=== PATIENT | female | born 1960 | race African-American/Black ===

== ENCOUNTER → 2017-05-24 | Day surgery (SDC) | payer OTHER ==
[~2017-05-24] MED LIST: AMLO5TAB22 PO; FURO20TA PO; HYDR-2768 PO; K-TA10TA5 PO; LACTATED RINGER'S 1000 ML INJ 1,000 ML ONE; OMEGCAP21 PO; OMEP20TA39 PO; PROPOFOL 500 MG/50 ML BTL IV ONE; VITA100018 OR; VITA10002 PO
== END | disposition home or self-care (01) ==
LOC: ESDC 12:12
PROVIDERS: ATTEND Internal Medicine Gastroenterology
DX: K92.1 Melena (principal); K64.4 Residual hemorrhoidal skin tags; K64.0 First degree hemorrhoids
CPT/HCPCS: 00810; 00902; 45378; 46930; J7120

== ENCOUNTER 2017-07-24 15:37 | Observation (INO) | payer OTHER ==
[~2017-07-24] VITALS: Ht 172.7 cm; Wt 145.5 kg
[~2017-07-24 15:37] MED LIST changes: -LACTATED RINGER'S 1000 ML INJ 1,000 ML ONE; -PROPOFOL 500 MG/50 ML BTL IV ONE
[2017-07-24] MEDS ORDERED: ASPIRIN 81 MG CHEW TAB PO ONE (16:00)
[2017-07-24] MEDS ORDERED: SODIUM CHLORIDE 0.9% FLUSH 10 ML FLUSH IVF PRN (16:00)
[2017-07-24] MEDS: NITROGLYCERIN 0.4 MG SL 25 TABS/BTL SL ONE ×2 (16:00→16:21)
[2017-07-24] MEDS ORDERED: OMEP20TA93 PO (16:02)
[2017-07-24] MEDS ORDERED: LISI-515 PO (16:02)
[2017-07-24] MEDS ORDERED: POTA10CA PO (16:02)
[2017-07-24] MEDS ORDERED: HYDR25TA5 PO (16:02)
[2017-07-24] MEDS ORDERED: FURO1TAB62 PO (16:02)
[2017-07-24 16:03] VITALS: BP 153/96; PULSE 70; RESP 18; TEMP 97.6; O2SAT 99
[2017-07-24 16:22] VITALS: BP 160/90; PULSE 69; RESP 18; O2SAT 99
[2017-07-24 16:25] LABS: AUTOMATED NEUTROPHIL # 3.9 TH/MM3 (1.8-7.7); BASOPHIL # 0.2 TH/MM3 (0-0.2); BASOPHIL % 2.1 % (0.0-2.0); EOSINOPHIL # 0.3 TH/MM3 (0-0.4); EOSINOPHIL % 3.8 % (0.0-4.0); HEMOGLOBIN 12.4 GM/DL (11.6-15.3); LYMPH % 35.8 % (9.0-44.0); LYMPHOCYTE # 2.7 TH/MM3 (1.0-4.8); MEAN CELL VOLUME 76.6 FL (80.0-100.0); MEAN CORPUSCULAR HEMOGLOBIN 23.8 PG (27.0-34.0); MEAN CORPUSCULAR HGB CONC 31.1 % (32.0-36.0); MEAN PLATELET VOLUME 7.8 FL (7.0-11.0); MONOCYTE # 0.5 TH/MM3 (0-0.9); NEUT % 51.3 % (16.0-70.0); PLATELET COUNT 334 TH/MM3 (150-450); RED BLOOD COUNT 5.22 MIL/MM3 (4.00-5.30); RED CELL DISTRIBUTION WIDTH 14.7 % (11.6-17.2); WHITE BLOOD COUNT 7.6 TH/MM3 (4.0-11.0)
[2017-07-24 16:34] LABS: CHLORIDE 103 MEQ/L (98-107); SODIUM (NA) 138 MEQ/L (136-145)
[2017-07-24 16:36] LABS: CALCIUM 8.8 MG/DL (8.5-10.1)
[2017-07-24 16:37] LABS: BICARBONATE 28.1 MEQ/L (21.0-32.0); BLOOD UREA NITROGEN 16 MG/DL (7-18); GLUCOSE,RANDOM 90 MG/DL (74-106); MAGNESIUM 2.1 MG/DL (1.5-2.5)
[2017-07-24 16:40] LABS: CREATININE 0.93 MG/DL (0.50-1.00); GLOMERULAR FILTRATION RATE 75 ML/MIN (>89)
[2017-07-24 16:44] LABS: INTERNATIONAL NORMALIZED RATIO 1.1 RATIO; PROTHROMBIN TIME - PATIENT 10.9 SEC (9.8-11.6)
[2017-07-24 16:45] LABS: TROPONIN I LESS THAN 0.02 NG/ML (0.02-0.05)
--- NOTE | 2017-07-24 16:50 | PD ---
HPI Chief Complaint: Chest Pain Time Seen by Provider: 15:52 Travel History International Travel<30 days: No Contact w/Intl Traveler<30days: No Traveled to known affect area: No History of Present Illness HPI 56-year-old female came to the emergency room with history of chest pressure since this morning. The pressure is in the center of her chest and not radiating. Patient describes the discomfort as an elephant sitting on her chest. No history of shortness of breath or dizziness. Patient has some headache as well. Patient has history of hypertension and takes medications for that. She is not a smoker. Family history of coronary artery disease. Vital signs were relatively stable when I walked in the room and talked to the patient. Currently her pressure is 4 out of 10 as per the patient. PFSH Past Medical History Narrative Medical List of her past medical, surgical, social and family history is reviewed from the nursing note. Hx Anticoagulant Therapy: Yes Heart Rhythm Problems: No Cardiac Catheterization: No Cardiovascular Problems: Yes High Cholesterol: Yes Congestive Heart Failure: No Diabetes: No Diminished Hearing: No Gastrointestinal Disorders: Yes (GERD) GERD: Yes Genitourinary: No Hypertension: Yes Musculoskeletal: No Neurologic: No Psychiatric: No Respiratory: Yes Immunizations Current: Yes Influenza Vaccination: No ?: Not Menopausal: Yes : 3 Para: 3 Miscarriage: 0 : 0 Tubal Ligation: Yes Past Surgical History Abdominal Surgery: Yes (CHOLECESECTOMY) AICD: No Body Medical Devices: PLATE FOR CERVICAL FUSION Cholecystectomy: Yes Coronary Artery Bypass Graft: No Endocrine Surgery: No Eye Surgery: No Gynecologic Surgery: Yes (HYSTERECTOMY 1990) Hysterectomy: Yes Joint Replacement: No Neurologic Surgery: Yes (CERVICAL FUSION) Oral Surgery: No Pacemaker: No Other Surgery: Yes Family History Family Myocardial Infarction: Yes (FATHER- PASSED AT 63) Social History Alcohol Use: No Tobacco Use: No Substance Use: No Allergies-Medications (Allergen,Severity, Reaction): Coded Allergies: Sulfa (Sulfonamide Antibiotics) (Unverified Allergy, Unknown, 07/24/17) Comments List of her allergies reviewed from the nursing note. Reported Meds & Prescriptions Reported Meds & Active Scripts Active Reported Omeprazole 20 Mg Tab 20 Mg PO DAILY Lasix (Furosemide) 20 Mg Tab 20 Mg PO DAILY Hydrochlorothiazide 25 Mg Tab 25 Mg PO DAILY Potassium Chloride ER (Potassium Chloride) 10 Meq Cap 10 Meq PO DAILY Lisinopril 20 Mg Tab 20 Mg PO DAILY Narrative Medication List of her home medications reviewed from the nursing note. Review of Systems Except as stated in HPI: all other systems reviewed are Neg Cardiovascular: Positive: Chest Pain or Discomfort Physical Exam Narrative GENERAL: Awake, alert, morbidly obese, mild distress SKIN: Focused skin assessment warm/dry. HEAD: Atraumatic. Normocephalic. EYES: Pupils equal and round. No scleral icterus. No injection or drainage. ENT: No nasal bleeding or discharge. Mucous membranes pink and moist. NECK: Trachea midline. No JVD. CARDIOVASCULAR: Regular rate and rhythm. No murmur appreciated. RESPIRATORY: No accessory muscle use. Clear to auscultation. Breath sounds equal bilaterally. GASTROINTESTINAL: Abdomen soft, non-tender, nondistended. Hepatic and splenic margins not palpable. MUSCULOSKELETAL: No obvious deformities. No clubbing. No cyanosis. No edema. NEUROLOGICAL: Awake and alert. No obvious cranial nerve deficits. Motor grossly within normal limits. Normal speech. PSYCHIATRIC: Appropriate mood and affect; insight and judgment normal. Data Data Last Documented VS Orders Orders Electrocardiogram (07/24/17 15:58) Basic Metabolic Panel (Bmp) (07/24/17 15:58) Ckmb (Isoenzyme) Profile (07/24/17 15:58) Complete Blood Count With Diff (07/24/17 15:58) Magnesium (Mg) (07/24/17 15:58) Prothrombin Time / Inr (Pt) (07/24/17 15:58) Act Partial Throm Time (Ptt) (07/24/17 15:58) Troponin I (07/24/17 15:58) Chest, Single Ap (07/24/17 15:58) Ecg Monitoring (07/24/17 15:58) Bilateral Bp Monitoring (07/24/17 15:58) Iv Access Insert/Monitor (07/24/17 15:58) Oximetry (07/24/17 15:58) Oxygen Administration (07/24/17 15:58) Aspirin Chew (Aspirin Chew) (07/24/17 16:00) Sodium Chloride 0.9% Flush (Ns Flush) (07/24/17 16:00) Nitroglycerin Sl (Nitrostat Sl) (07/24/17 16:00) CKMB (07/24/17 16:10) CKMB% (07/24/17 16:10) Admit Order (Ed Use Only) (07/24/17 17:01) Place In Observation (07/24/17 ) Vital Signs (Adult) Q4H (07/24/17 16:59) Activity Oob With Assistance (07/24/17 16:59) Diet Heart Healthy (07/24/17 Dinner) Sodium Chloride 0.9% Flush (Ns Flush) (07/24/17 17:00) Sodium Chloride 0.9% Flush (Ns Flush) (07/24/17 21:00) Acetaminophen (Tylenol) (07/24/17 17:00) Ondansetron Inj (Zofran Inj) (07/24/17 17:00) Temazepam (Restoril) (07/24/17 17:00) Basic Metabolic Panel (Bmp) (07/25/17 06:00) Complete Blood Count With Diff (07/25/17 06:00) Resp Oxygen Barry C Titrat 1-4 L (07/24/17 ) Pt Request For Service (07/24/17 16:59) Scd Bilateral/Knee High YAHAIRA.BID (07/24/17 16:59) Reid Bilateral/Knee High YAHAIRA.QSHIFT (07/24/17 16:59) Naloxone Inj (Narcan Inj) (07/24/17 17:00) Docusate Sodium-Senna (Dori-Colace) (07/24/17 21:00) Magnesium Hydroxide Liq (Milk Of Magnesi (07/24/17 17:00) Sennosides (Senokot) (07/24/17 17:00) Bisacodyl Supp (Dulcolax Supp) (07/24/17 17:00) Lactulose Liq (Lactulose Liq) (07/24/17 17:00) Labs Laboratory Tests Test 07/24/17 16:10 White Blood Count 7.6 TH/MM3 Red Blood Count 5.22 MIL/MM3 Hemoglobin 12.4 GM/DL Hematocrit 40.0 % Mean Corpuscular Volume 76.6 FL Mean Corpuscular Hemoglobin 23.8 PG Mean Corpuscular Hemoglobin Concent 31.1 % Red Cell Distribution Width 14.7 % Platelet Count 334 TH/MM3 Mean Platelet Volume 7.8 FL Neutrophils (%) (Auto) 51.3 % Lymphocytes (%) (Auto) 35.8 % Monocytes (%) (Auto) 7.0 % Eosinophils (%) (Auto) 3.8 % Basophils (%) (Auto) 2.1 % Neutrophils # (Auto) 3.9 TH/MM3 Lymphocytes # (Auto) 2.7 TH/MM3 Monocytes # (Auto) 0.5 TH/MM3 Eosinophils # (Auto) 0.3 TH/MM3 Basophils # (Auto) 0.2 TH/MM3 CBC Comment AUTO DIFF Differential Comment AUTO DIFF CONFIRMED Prothrombin Time 10.9 SEC Prothromb Time International Ratio 1.1 RATIO Activated Partial Thromboplast Time 22.1 SEC Blood Urea Nitrogen 16 MG/DL Creatinine 0.93 MG/DL Random Glucose 90 MG/DL Calcium Level 8.8 MG/DL Magnesium Level 2.1 MG/DL Sodium Level 138 MEQ/L Potassium Level 4.3 MEQ/L Chloride Level 103 MEQ/L Carbon Dioxide Level 28.1 MEQ/L Anion Gap 7 MEQ/L Estimat Glomerular Filtration Rate 75 ML/MIN Total Creatine Kinase 274 U/L Creatine Kinase MB 2.0 NG/ML Creatine Kinase MB % 0.7 % Troponin I LESS THAN 0.02 NG/ML MDM Medical Decision Making Medical Screen Exam Complete: Yes Emergency Medical Condition: Yes Medical Record Reviewed: Yes Interpretation(s) Twelve-lead EKG was reviewed by me. Normal sinus rhythm, axis deviation, first- degree AV block, nonspecific ST-T wave changes. Heart rate of 67 bpm. Differential Diagnosis ACS, non-STEMI Narrative Course 4:53 PM blood test results of back and within acceptable limit. However patient has quite a few risk factors including hypertension, obesity and family history. I discussed with her that she would require admission to be ruled out for ACS by stress test. Patient has agreed to. Awaiting for the hospitalist to call back. Procedures EKG Prior to Arrival: No Diagnosis Primary Impression: Chest pain Qualified Codes: R07.9 - Chest pain, unspecified Admitting Information Admitting Physician Requests: Jennifer Hyman MD Jul 24, 2017 16:50
--- NOTE | 2017-07-24 16:54 | RADRPT ---
EXAM DATE/TIME: 07/24/2017 16:14 [facility] COMPARISON: CHEST SINGLE AP, October 15, 2010, 13:23. INDICATIONS : Chest pain MEDICAL HISTORY : None. SURGICAL HISTORY : None. ENCOUNTER: Initial ACUITY: 1 day PAIN SCORE: 5/10 LOCATION: Bilateral chest FINDINGS: The lungs are clear without infiltrate, nodule, or mass. There is no appreciable pleural effusion fo r technique. Heart and mediastinum are unremarkable. CONCLUSION: No acute cardiopulmonary disease. Heidy Srinivasan MD on July 24, 2017 at 16:51 Board Certified Radiologist. This report was verified electronically.
[2017-07-24] MEDS ORDERED: SENNOSIDES 8.6 MG TAB PO PRN (17:00)
[2017-07-24] MEDS ORDERED: SODIUM CHLORIDE 0.9% FLUSH 10 ML FLUSH IV FLUSH PRN (17:00)
[2017-07-24] MEDS ORDERED: LACTULOSE SYRUP 20 GM/30 ML CUP PO PRN (17:00)
[2017-07-24] MEDS ORDERED: TEMAZEPAM 15 MG CAP PO PRN (17:00)
[2017-07-24] MEDS ORDERED: NALOXONE HCL 0.4 MG/ML AMP IV PUSH PRN (17:00)
[2017-07-24] MEDS ORDERED: ONDANSETRON HCL 4 MG/2 ML VIAL IVP PRN (17:00)
[2017-07-24] MEDS ORDERED: BISACODYL 10 MG SUPP RECTAL PRN (17:00)
[2017-07-24] MEDS ORDERED: ACETAMINOPHEN 325 MG TAB PO PRN (17:00)
[2017-07-24] MEDS ORDERED: MAGNESIUM HYDROXIDE SUSP 30 ML CUP PO PRN (17:00)
[2017-07-24] MEDS ORDERED: NITROGLYCERIN 0.4 MG SL 25 TABS/BTL SL PRN (17:15)
[2017-07-24 17:28] VITALS: O2SAT 97
[2017-07-24 17:29] VITALS: BP 164/94; PULSE 68; RESP 18; O2SAT 97
--- NOTE | 2017-07-24 17:35 | HHI.HP ---
[facility] Service [facility] Primary Care Physician Billy Mueller MD Admission Diagnosis Chest pain, rule out ACS Diagnoses: Chief Complaint: Chest pain Travel History International Travel<30 Days: No Contact w/Intl Traveler <30 Da: No Traveled to Known Affected Are: No History of Present Illness Written by Antonette Xavier, acting as scribe for Dr. Ramirez on 07/24/17 at 17:29. Ms. García is a 56-year-old female patient with a known medical history of HTN, hyperlipidemia, and GERD who presented to the ED with complaints of chest pain. Patient states that for 1 week now she has had pain going down her left sided neck and left arm. Believed to have thought she laid on it wrong but then today while she was lying in bed she felt as thought "something was sitting on her chest". Pain lasted around an hour and subsided upon arrival to the ED when given Aspirin. Denies any associated shortness of breath or nausea. Does admit to associated lightheadedness. Denies ever having any pain like this before in her arm. She also does admit to elevated BP today and this was concerning to the patient. It should be noted that patient presented to the sharepoint consultant's office to obtain a BP last week and it was reportedly elevated with systolic in the 170s. Patient's sharepoint consultant is Dr. Piña. Last hospital admission with chest pain was roughly 1 year ago. Stress test was performed and reportedly negative. At the time of assessment patient denies any current or recurrent chest pain. Does complaint of headache. Review of Systems Constitutional: DENIES: Fever, Chills Eyes: DENIES: Blurred vision, Vision loss Respiratory: DENIES: Cough, Sputum production, Shortness of breath Cardiovascular: COMPLAINS OF: Chest pain, DENIES: Palpitations Gastrointestinal: DENIES: Abdominal pain, Bloody stools, Constipation, Diarrhea , Nausea, Vomiting Musculoskeletal: COMPLAINS OF: Joint pain (left arm) Psychiatric: COMPLAINS OF: Anxiety Except as stated in HPI: all other systems reviewed are Neg Past Family Social History Past Medical History Hypertension Hyperlipidemia GERD Past Surgical History Cholecystectomy Hysterectomy Cervical fusion Tubal ligation Reported Medications Active Reported Omeprazole 20 Mg Tab 20 Mg PO DAILY Lasix (Furosemide) 20 Mg Tab 20 Mg PO DAILY Hydrochlorothiazide 25 Mg Tab 25 Mg PO DAILY Potassium Chloride ER (Potassium Chloride) 10 Meq Cap 10 Meq PO DAILY Lisinopril 20 Mg Tab 20 Mg PO DAILY Allergies: Coded Allergies: Sulfa (Sulfonamide Antibiotics) (Unverified Allergy, Unknown, 07/24/17) Active Ordered Medications Current Medications Medications (Trade) Dose Ordered Sig/Rosmery Route Start Time Stop Time Status Last Admin (NS Flush) 2 ml UNSCH PRN IV FLUSH 07/24/17 17:00 (NS Flush) 2 ml BID IV FLUSH 07/24/17 21:00 (Tylenol) 650 mg Q4H PRN PO 07/24/17 17:00 (Zofran Inj) 4 mg Q6H PRN IVP 07/24/17 17:00 (Restoril) 15 mg HS PRN PO 07/24/17 17:00 (Narcan Inj) 0.4 mg UNSCH PRN IV PUSH 07/24/17 17:00 (Dori-Colace) 1 tab BID PO 07/24/17 21:00 (Milk Of Magnesia Liq) 30 ml Q12H PRN PO 07/24/17 17:00 (Senokot) 17.2 mg Q12H PRN PO 07/24/17 17:00 (Dulcolax Supp) 10 mg DAILY PRN RECTAL 07/24/17 17:00 (Lactulose Liq) 30 ml DAILY PRN PO 07/24/17 17:00 (Lasix) 20 mg DAILY PO 07/25/17 09:00 (Hydrodiuril) 25 mg DAILY PO 07/25/17 09:00 (Prinivil) 20 mg DAILY PO 07/25/17 09:00 (KCl) 10 meq DAILY PO 07/25/17 09:00 Non-Formulary Medication 20 mg DAILY PO 07/25/17 09:00 UNV (Nitrostat Sl) 0.4 mg Q5M PRN SL 07/24/17 17:15 Family History Paternal medical history significant for cardiovascular disease. Mother had cardiovascular disease. Grandmother with pacemake. Social History Denies any tobacco use. Denies any alcohol use. Denies any illicit drug use. Physical Exam Vital Signs Vital Signs Date Time Temp Pulse Resp B/P (MAP) Pulse Ox O2 Delivery O2 Flow Rate FiO2 07/24/17 17:28 97 21 07/24/17 16:22 69 18 160/90 (113) 99 Room Air 07/24/17 16:06 70 07/24/17 16:05 98 Room Air 07/24/17 16:03 97.6 70 18 153/96 (115) 99 Physical Exam GENERAL: This is a well-nourished, well-developed female patient, in no apparent distress. SKIN: No rashes, ecchymoses or lesions. Warm and dry. HEAD: Atraumatic. Normocephalic. EYES: Pupils equal round and reactive. Extraocular motions intact. No scleral icterus. No injection or drainage. ENT: Nose without bleeding, purulent drainage or septal hematoma. Throat without erythema, tonsillar hypertrophy or exudate. Uvula midline. Airway patent. NECK: Trachea midline. No JVD. Supple. CARDIOVASCULAR: Regular rate and rhythm without murmurs, gallops, or rubs. No reproducible chest discomfort. RESPIRATORY: Clear to auscultation. Breath sounds equal bilaterally. No wheezes , rales, or rhonchi. GASTROINTESTINAL: Abdomen soft, non-tender, nondistended. No guarding. MUSCULOSKELETAL: Extremities without clubbing, cyanosis, or edema. No joint tenderness, effusion, or edema noted. NEUROLOGICAL: Awake and alert. Cranial nerves II through XII intact. Motor and sensory grossly within normal limits. Five out of 5 muscle strength in all muscle groups. Normal speech. Laboratory Laboratory Tests Test 07/24/17 16:10 White Blood Count 7.6 Red Blood Count 5.22 Hemoglobin 12.4 Hematocrit 40.0 Mean Corpuscular Volume 76.6 Mean Corpuscular Hemoglobin 23.8 Mean Corpuscular Hemoglobin Concent 31.1 Red Cell Distribution Width 14.7 Platelet Count 334 Mean Platelet Volume 7.8 Neutrophils (%) (Auto) 51.3 Lymphocytes (%) (Auto) 35.8 Monocytes (%) (Auto) 7.0 Eosinophils (%) (Auto) 3.8 Basophils (%) (Auto) 2.1 Neutrophils # (Auto) 3.9 Lymphocytes # (Auto) 2.7 Monocytes # (Auto) 0.5 Eosinophils # (Auto) 0.3 Basophils # (Auto) 0.2 CBC Comment AUTO DIFF Differential Comment AUTO DIFF CONFIRMED Prothrombin Time 10.9 Prothromb Time International Ratio 1.1 Activated Partial Thromboplast Time 22.1 Blood Urea Nitrogen 16 Creatinine 0.93 Random Glucose 90 Calcium Level 8.8 Magnesium Level 2.1 Sodium Level 138 Potassium Level 4.3 Chloride Level 103 Carbon Dioxide Level 28.1 Anion Gap 7 Estimat Glomerular Filtration Rate 75 Total Creatine Kinase 274 Creatine Kinase MB 2.0 Creatine Kinase MB % 0.7 Troponin I LESS THAN 0.02 Result Diagram: 07/24/17 1610 07/24/17 1610 Imaging Last Impressions Chest X-Ray 07/24/17 1558 Signed Impressions: Service Date/Time: Wednesday, July 24, 2017 16:14 - CONCLUSION: No acute cardiopulmonary disease. Heidy Srinivasan MD Septic Shock Reassessment Septic shock perfusion: reassessment completed Caprini VTE Risk Assessment Caprini VTE Risk Assessment: No/Low Risk (score <= 1) Caprini Risk Assessment Model Point Value = 1 Point Value = 2 Point Value = 3 Point Value = 5 Age 41-60 Minor surgery BMI > 25 kg/m2 Swollen legs Varicose veins or History of unexplained or recurrent spontaneous Oral contraceptives or hormone replacement Sepsis (< 1 month) Serious lung disease, including pneumonia (< 1 month) Abnormal pulmonary function Acute myocardial infarction Congestive heart failure (< 1 month) History of inflammatory bowel disease Medical patient at bed rest Age 61-74 Arthroscopic surgery Major open surgery (> 45 min) Laparoscopic surgery (> 45 min) Malignancy Confined to bed (> 72 hours) Immobilizing plaster cast Central venous access Age >= 75 History of VTE Family history of VTE Factor V Leiden Prothrombin [id number] Lupus anticoagulant Anticardiolipin antibodies Elevated serum homocysteine Heparin-induced thrombocytopenia Other congenital or acquired thrombophilia Stroke (< 1 month) Elective arthroplasty Hip, pelvis, or leg fracture Acute spinal cord injury (< 1 month) Prophylaxis Regimen Total Risk Factor Score Risk Level Prophylaxis Regimen 0-1 Low Early ambulation 2 Moderate Order ONE of the following: *Sequential Compression Device (SCD) *Heparin 5000 units SQ BID 3-4 Higher Order ONE of the following medications: *Heparin 5000 units SQ TID *Enoxaparin/Lovenox 40 mg SQ daily (WT < 150 kg, CrCl > 30 mL/min) *Enoxaparin/Lovenox 30 mg SQ daily (WT < 150 kg, CrCl > 10-29 mL/min) *Enoxaparin/Lovenox 30 mg SQ BID (WT < 150 kg, CrCl > 30 mL/min) AND/OR *Sequential Compression Device (SCD) 5 or more Highest Order ONE of the following medications: *Heparin 5000 units SQ TID (Preferred with Epidurals) *Enoxaparin/Lovenox 40 mg SQ daily (WT < 150 kg, CrCl > 30 mL/min) *Enoxaparin/Lovenox 30 mg SQ daily (WT < 150 kg, CrCl > 10-29 mL/min) *Enoxaparin/Lovenox 30 mg SQ BID (WT < 150 kg, CrCl > 30 mL/min) AND *Sequential Compression Device (SCD) Assessment and Plan Problem List: (1) Chest pain ICD Code: R07.9 - Chest pain, unspecified Status: Acute Plan: Patient has been admitted to the chest pain center. Serial EKGs and serial Troponins have been ordered for ruling out ACS purposes. Initial tropnin flat. EKG reviewed axis deviation, first-degree AV block, nonspecific ST-T wave changes. Heart rate of 67 bpm. Patient given Aspirin in ED. Continue cardiac telemetry, monitor for arrhythmias. CXR reviewed showing no acute disease. Clinically patient is comfortable on RA. Afebrile. WBC WNL. CBC and BMP reviewed essentially unremarkable. Patient denies any current chest pain, all symptoms have resolved. Nitroglycerin SL available PRN chest pain. Patient is stable at this time and agreeable to the plan. (2) Hypertension ICD Code: I10 - Hypertension Status: Chronic Plan: Continue home medications. Monitor BP trends. (3) GERD (gastroesophageal reflux disease) ICD Code: K21.9 - GERD (gastroesophageal reflux disease) Status: Chronic Plan: Continue Protonix. DVT Prophylaxis: SCDs. Assessment and Plan This note was transcribed by CHARLES Oleary . I, Dr. Anisa Ramirez personally performed the history, physical exam, and medical decision making; and confirmed the accuracy of the information in the transcribed note. Authenticated by Dr. Anisa Ramirez on 07/24/17 at 17:29. Problem Qualifiers (1) Chest pain: Qualified Codes: R07.9 - Chest pain, unspecified Antonette Xavier Jul 24, 2017 17:35 Anisa Rmairez MD Jul 24, 2017 17:52
[2017-07-24] MEDS: DOCUSATE SODIUM 50 MG/SENNA 8.6 MG TAB PO SCH (21:00)
[2017-07-24 21:09] VITALS: BP 132/81; PULSE 65; RESP 18; TEMP 98; O2SAT 97
--- NOTE | 2017-07-24 21:47 | EKG ---
Date Performed: 07/24/2017 Time Performed: 19:03:39 PTAGE: 56 years EKG: Sinus rhythm WITH FIRST DEGREE AV BLOCK NONSPECIFIC T-WAVE ABNORMALITY ABNORMAL ECG PREVIOUS TRACING : 07/24/2017 15.49 Compared to prior tracing no significant change DOCTOR: Jacobo Bah Interpretating Date/Time 07/24/2017 21:45:41
--- NOTE | 2017-07-24 21:55 | EKG ---
Date Performed: 07/24/2017 Time Performed: 15:49:18 PTAGE: 56 years EKG: Sinus rhythm WITH FIRST DEGREE AV BLOCK ABNORMAL ECG PREVIOUS TRACING : 05/22/2016 09.11 Compared to prior tracing no significant change DOCTOR: Jacobo Bah Interpretating Date/Time 07/24/2017 21:54:17
[2017-07-24] MEDS: SODIUM CHLORIDE 0.9% FLUSH 10 ML FLUSH IV FLUSH SCH (21:59)
[2017-07-24 22:18] VITALS: O2SAT 96
--- NOTE | 2017-07-24 22:30 | EKG ---
Date Performed: 07/24/2017 Time Performed: 22:19:32 PTAGE: 56 years EKG: Sinus rhythm WITH FIRST DEGREE AV BLOCK NONSPECIFIC T-WAVE ABNORMALITY ABNORMAL ECG PREVIOUS TRACING : 07/24/2017 19.03 Compared to prior tracing no significant change DOCTOR: Jacobo Bah Interpretating Date/Time 07/24/2017 22:29:01
[2017-07-25 00:49] VITALS: BP 132/71; PULSE 67; RESP 16; TEMP 98.1; O2SAT 98
[2017-07-25 04:33] VITALS: BP 145/91; PULSE 67; RESP 20; TEMP 97.1; O2SAT 98
[2017-07-25 08:00] VITALS: BP 149/82; PULSE 62; RESP 14; TEMP 97.6; O2SAT 96
[2017-07-25 08:10] VITALS: O2SAT 98
[2017-07-25] MEDS: SODIUM CHLORIDE 0.9% FLUSH 10 ML FLUSH IV FLUSH SCH (08:34)
[2017-07-25] MEDS: DOCUSATE SODIUM 50 MG/SENNA 8.6 MG TAB PO SCH (08:34)
[2017-07-25] MEDS ORDERED: HYDROCHLOROTHIAZIDE 25 MG TAB PO SCH (09:00)
[2017-07-25] MEDS ORDERED: PANTOPRAZOLE SOD 20 MG DELAYED RELEASE TAB PO SCH (09:00)
[2017-07-25] MEDS ORDERED: POTASSIUM CHLORIDE 10 MEQ CAP PO SCH (09:00)
[2017-07-25] MEDS ORDERED: LISINOPRIL 20 MG TAB PO SCH (09:00)
[2017-07-25] MEDS ORDERED: FUROSEMIDE 20 MG TAB PO SCH (09:00)
[2017-07-25] MEDS ORDERED: POTASSIUM CHLORIDE 10 MEQ CONTROLLED RELEASE TAB PO SCH (09:00)
[2017-07-25 09:30] LABS: AUTOMATED NEUTROPHIL # 2.9 TH/MM3 (1.8-7.7); BASOPHIL % 0.5 % (0.0-2.0); EOSINOPHIL # 0.2 TH/MM3 (0-0.4); EOSINOPHIL % 3.8 % (0.0-4.0); HEMOGLOBIN 11.2 GM/DL (11.6-15.3); LYMPH % 35.2 % (9.0-44.0); LYMPHOCYTE # 1.9 TH/MM3 (1.0-4.8); MEAN CELL VOLUME 76.3 FL (80.0-100.0); MEAN CORPUSCULAR HEMOGLOBIN 24.4 PG (27.0-34.0); MEAN PLATELET VOLUME 7.4 FL (7.0-11.0); MONOCYTE # 0.4 TH/MM3 (0-0.9); NEUT % 53.5 % (16.0-70.0); PLATELET COUNT 303 TH/MM3 (150-450); RED BLOOD COUNT 4.58 MIL/MM3 (4.00-5.30); RED CELL DISTRIBUTION WIDTH 14.6 % (11.6-17.2); WHITE BLOOD COUNT 5.4 TH/MM3 (4.0-11.0)
--- NOTE | 2017-07-25 09:51 | HHI.PR ---
Subjective Remarks Appears in not acute distress. Says she did not experience any chest pain over the night. No nausea or vomiting or diarrhea or constipation she has some stiffness in her neck and shoulder. We'll try muscle relaxant. Denies shortness of breath, cough, fever or chills. Objective Vitals Vital Signs Date Time Temp Pulse Resp B/P (MAP) Pulse Ox O2 Delivery O2 Flow Rate FiO2 07/25/17 04:33 97.1 67 20 145/91 (109) 98 07/25/17 00:49 98.1 67 16 132/71 (91) 98 07/24/17 22:18 96 21 07/24/17 21:09 98.0 65 18 132/81 (98) 97 07/24/17 17:47 07/24/17 17:29 68 07/24/17 17:29 68 18 164/94 (117) 97 Room Air 07/24/17 17:28 97 21 07/24/17 16:22 69 18 160/90 (113) 99 Room Air 07/24/17 16:06 70 07/24/17 16:05 98 Room Air 07/24/17 16:03 97.6 70 18 153/96 (115) 99 Result Diagram: 07/25/17 0853 07/24/17 1610 Imaging Last Impressions Chest X-Ray 07/24/17 1558 Signed Impressions: Service Date/Time: Wednesday, July 24, 2017 16:14 - CONCLUSION: No acute cardiopulmonary disease. Heidy Srinivasan MD Objective Remarks GENERAL: This is a well-nourished, well-developed female patient, in no apparent distress. CARDIOVASCULAR: Regular rate and rhythm without murmurs, gallops, or rubs. No reproducible chest discomfort. RESPIRATORY: Clear to auscultation. Breath sounds equal bilaterally. No wheezes , rales, or rhonchi. GASTROINTESTINAL: Abdomen soft, non-tender, nondistended. No guarding. MUSCULOSKELETAL: Extremities without clubbing, cyanosis, or edema. No joint tenderness, effusion, or edema noted. NEUROLOGICAL: Awake and alert. Cranial nerves II through XII intact. Motor and sensory grossly within normal limits. Five out of 5 muscle strength in all muscle groups. Normal speech. A/P Problem List: (1) Chest pain ICD Code: R07.9 - Chest pain, unspecified Status: Acute Plan: Patient has been admitted to the chest pain center. Serial EKGs and serial Troponins have been ordered for ruling out ACS purposes. Troponins flat. EKG reviewed axis deviation, first-degree AV block, nonspecific ST-T wave changes. Heart rate of 67 bpm. Patient given Aspirin in ED. Continued cardiac telemetry, monitor for arrhythmias. CXR reviewed showing no acute disease. Clinically patient is comfortable on RA. Afebrile. WBC WNL. CBC and BMP reviewed essentially unremarkable. Patient denies any current chest pain, all symptoms have resolved. Nitroglycerin SL available PRN chest pain. Patient underwent a cardiac treadmill stress test. Images reviewed by Dr. Hernandez , cardiology web applications architect, who indicates no signs of ischemia. Patient updated about results and will follow up with PCP. If symptoms persist patient advised to return to the ED. Will discharge patient today. (2) Hypertension ICD Code: I10 - Hypertension Status: Chronic (3) GERD (gastroesophageal reflux disease) ICD Code: K21.9 - GERD (gastroesophageal reflux disease) Status: Chronic Assessment and Plan (1) Chest pain ICD Code: R07.9 - Chest pain, unspecified Status: Acute Plan: Patient has been admitted to the chest pain center. Serial EKGs at baseline and serial Troponins neg . EKG reviewed axis deviation, first-degree AV block, nonspecific ST-T wave changes. Heart rate of 67 bpm. Patient given Aspirin in ED. Continue cardiac telemetry, monitor for arrhythmias. CXR reviewed showing no acute disease. Clinically patient is comfortable on RA. Afebrile. WBC WNL. CBC and BMP reviewed essentially unremarkable. Patient denies any current chest pain, all symptoms have resolved. Nitroglycerin SL available PRN chest pain. Patient is stable at this time and agreeable to the plan. DC plan: Stress test is negative, patient can be discharged home today. Follow up as outpatient with PCP consultants. Discharge Planning Stress test is negative, patient can be discharged home today. Follow up as outpatient with PCP consultants Diet healthy heart diet Activity ad christian. As tolerated Medications per medication reconciliation Problem Qualifiers (1) Chest pain: Qualified Codes: R07.9 - Chest pain, unspecified Anisa Ramirez MD Jul 25, 2017 09:51 Antonette Xavier Jul 25, 2017 13:39
[2017-07-25 10:05] LABS: CALCIUM 8.7 MG/DL (8.5-10.1)
[2017-07-25 10:06] LABS: BICARBONATE 31.9 MEQ/L (21.0-32.0)
[2017-07-25 10:09] LABS: CREATININE 0.88 MG/DL (0.50-1.00)
[2017-07-25 12:00] VITALS: BP 138/82; PULSE 67; RESP 14; TEMP 97.4; O2SAT 97
--- NOTE | 2017-07-25 13:29 | TR ---
Date Performed: 07/25/2017 Time Performed: 12:13:45 DOCTOR: Billy Hernandez DRUG LIST: CLINICAL HISTORY: CHEST PAIN REASON FOR TEST: REASON FOR ENDING: OBSERVATION: CONCLUSION: Kyle protocol completed secondary to reaching target heart rate and leg fatigue. Fa ir exercise tolerance. No ST Changes to indicate ischemia. No reproducible chest discomfort.Recovery quick and unremarkable.Maximum IC=700 Target HR Wlickzda=350.0% Maximum PD=841/80 Total Exercise Heriberto e=4:31 COMMENTS: Patient exercised using the Kyle protocol. No electrocardiographic changes were seen diagnostic of ischemia. Hemodynamic response to exercise was normal. No significant arrhythmia was pr esent. Low probability of severe ischemic CAD as cause of current presentation.
--- NOTE | 2017-07-25 13:41 | HHI.DCPOC ---
Discharge Care Plan Diagnosis: (1) Hypertension (2) Chest pain (3) GERD (gastroesophageal reflux disease) Your Health Problems Are: Chest Pain Goals to Promote Your Health * To prevent worsening of your condition and complications * To maintain your health at the optimal level Directions to Meet Your Goals Take your medications as prescribed Follow your dietary instruction Follow activity as directed Keep your appointments as scheduled Take your immunizations and boosters as scheduled If your symptoms worsen call your PCP, if no PCP go to Urgent Care Center or Emergency Room Smoking is Dangerous to Your Health. Avoid second hand smoke Call the 24-hour hour crisis hotline for domestic abuse at Antonette Xavier Jul 25, 2017 13:41
--- NOTE | 2017-07-25 22:28 | EKG ---
Date Performed: 07/25/2017 Time Performed: 01:14:57 PTAGE: 56 years EKG: Sinus rhythm WITH FIRST DEGREE AV BLOCK NONSPECIFIC T-WAVE ABNORMALITY ABNORMAL ECG No significant change from pr ior electrocardiogram. PREVIOUS TRACING : 07/24/2017 22.19 DOCTOR: Jose Draper Interpretating Date/Time 07/25/2017 22:28:22
== END 2017-07-25 15:10 | disposition home or self-care (01) ==
LOC: PHED 15:37 → PHEDA 17:02 → PH3A 17:57
PROVIDERS: ADMIT Hospitalist; ATTEND Hospitalist
DX: I10 Essential (primary) hypertension (principal); R07.9 Chest pain, unspecified; K21.9 Gastro-esophageal reflux disease without esophagitis; I44.0 Atrioventricular block, first degree; E78.5 Hyperlipidemia, unspecified; E66.9 Obesity, unspecified; Z68.42 Body mass index [BMI] 45.0-49.9, adult; Z82.49 Family history of ischemic heart disease and other diseases of the circulatory system; Z90.710 Acquired absence of both cervix and uterus
CPT/HCPCS: 71010; 80048; 82550; 82552; 83735; 84484; 85025; 85610; 85730; 93005; 93017; 97161; 99285; G0378; G8987; G8988

== ENCOUNTER 2017-10-31 10:40 | Emergency (ER) | payer OTHER ==
[~2017-10-31] VITALS: Ht 172.7 cm; Wt 136.0 kg
[2017-10-31 10:40] VITALS: BP 171/78; PULSE 75; RESP 18; TEMP 98; O2SAT 98
[~2017-10-31 10:40] MED LIST changes: -AMLO5TAB22 PO; +FURO1TAB62 PO; -FURO20TA PO; -HYDR-2768 PO; +HYDR25TA5 PO; -K-TA10TA5 PO; +LISI-515 PO; -OMEGCAP21 PO; -OMEP20TA39 PO; +OMEP20TA93 PO; +POTA10CA PO; -VITA100018 OR; -VITA10002 PO
[2017-10-31 13:35] VITALS: BP 165/106; PULSE 76; RESP 17; O2SAT 99
[2017-10-31] MEDS ORDERED: SODIUM CHLOR 0.9% 1000 ML INJ 1,000 ML IV SCH (13:41)
[2017-10-31] MEDS ORDERED: SODIUM CHLORIDE 0.9% FLUSH 10 ML FLUSH IV FLUSH PRN (13:45)
[2017-10-31] MEDS ORDERED: LISI-515 PO (13:51)
[2017-10-31 14:14] LABS: AUTOMATED NEUTROPHIL # 6.4 TH/MM3 (1.8-7.7); BASOPHIL # 0.1 TH/MM3 (0-0.2); BASOPHIL % 0.6 % (0.0-2.0); EOSINOPHIL # 0.2 TH/MM3 (0-0.4); EOSINOPHIL % 1.9 % (0.0-4.0); HEMATOCRIT 37.2 % (35.0-46.0); HEMOGLOBIN 12.1 GM/DL (11.6-15.3); LYMPH % 22.7 % (9.0-44.0); LYMPHOCYTE # 2.1 TH/MM3 (1.0-4.8); MEAN CELL VOLUME 76.2 FL (80.0-100.0); MEAN CORPUSCULAR HEMOGLOBIN 24.8 PG (27.0-34.0); MEAN CORPUSCULAR HGB CONC 32.6 % (32.0-36.0); MEAN PLATELET VOLUME 7.8 FL (7.0-11.0); MONOCYTE # 0.6 TH/MM3 (0-0.9); NEUT % 68.8 % (16.0-70.0); PLATELET COUNT 331 TH/MM3 (150-450); RED BLOOD COUNT 4.88 MIL/MM3 (4.00-5.30); RED CELL DISTRIBUTION WIDTH 16.2 % (11.6-17.2); WHITE BLOOD COUNT 9.3 TH/MM3 (4.0-11.0)
[2017-10-31 14:33] LABS: ALBUMIN 3.4 GM/DL (3.4-5.0); AST (GOT) 10 U/L (15-37); BICARBONATE 29.3 MEQ/L (21.0-32.0); BLOOD UREA NITROGEN 12 MG/DL (7-18); CALCIUM 8.9 MG/DL (8.5-10.1); CHLORIDE 101 MEQ/L (98-107); GLOMERULAR FILTRATION RATE 62 ML/MIN (>89); GLUCOSE,RANDOM 89 MG/DL (74-106); SODIUM (NA) 137 MEQ/L (136-145)
[2017-10-31 14:35] LABS: ALT (GPT) 23 U/L (10-53)
[2017-10-31 14:36] LABS: ALKALINE PHOSPHATASE 80 U/L (45-117); TOTAL BILIRUBIN ADULT 0.4 MG/DL (0.2-1.0); TOTAL PROTEIN 7.9 GM/DL (6.4-8.2)
[2017-10-31] MEDS ORDERED: IOHEXOL 350 MG/ML 10 ML VIAL (for RAD DIAG) IVCONTRAST ONE (14:59)
--- NOTE | 2017-10-31 15:05 | RADRPT ---
EXAM DATE/TIME: 10/31/2017 14:45 [facility] COMPARISON: No previous studies available for comparison. INDICATIONS : Right lower abdominal pain, nausea. Appendicitis. IV CONTRAST: 80 cc Omnipaque 350 (iohexol) IV ORAL CONTRAST: No oral contrast ingested. RADIATION DOSE: 17.01 CTDIvol (mGy) MEDICAL HISTORY : Cardiovascular disease. Hypercholesterolemia. Hypertension.GERD SURGICAL HISTORY : Tubal ligation. Hysterectomy.Cholecystectomy.Cervical fusion ENCOUNTER: Initial ACUITY: 1 day PAIN SCALE: 7/10 LOCATION: Right lower quadrant TECHNIQUE: Volumetric scanning of the abdomen and pelvis was performed. Using automated exposure control and ad justment of the mA and/or kV according to patient size, radiation dose was kept as low as reasonably achievable to obtain optimal diagnostic quality images. DICOM format image data is available electro nically for review and comparison. FINDINGS: The appendix appears normal. However, there is a loop of small bowel in the right lower quadrant that demonstrates mural thickening and surrounding edema and inflammatory change. This inflammatory reed e extends towards the sigmoid colon. There is no associated abscess identified. There is a small amou nt free fluid in the pelvis. Differential diagnosis includes a focal enteritis or inflammatory bowel disease. No lung bases are clear. No acute findings in the liver, spleen, adrenals, kidneys or pancreas. Previ ous cholecystectomy and hysterectomy. CONCLUSION: 1. Abnormal mural thickening of several loops of small bowel in the right lower quadrant with surroun ding inflammatory change and edema. Differential diagnosis includes enteritis and inflammatory bowel disease. The appendix appears normal. No obstruction, abscess or free air. Small amount free fluid pr esent. Manolo Berry MD on October 31, 2017 at 14:57 Board Certified Radiologist. This report was verified electronically.
[2017-10-31 15:26] LABS: BILIRUBIN, URINE NEG (NEG); BLOOD, URINE NEG (NEG); GLUCOSE,URINE NEG (NEG); KETONE, URINE NEG (NEG); MUCUS URINE FEW /lpf (OCC); NITRITE,URINE NEG (NEG); PH, URINE 6.5 (5.0-8.5); SQUAMOUS EPITHELIAL CELL URINE 2 /hpf (0-5); URINE COLOR LIGHT-YELLOW (YELLW/STRAW); URINE LEUKOCYTE ESTERASE NEG (NEG)
[2017-10-31] MEDS ORDERED: DICY10 PO (15:38)
[2017-10-31] MEDS ORDERED: METR-1 PO (15:38)
--- NOTE | 2017-10-31 15:38 | PD ---
HPI Chief Complaint: Abdominal Pain Time Seen by Provider: 13:15 Travel History International Travel<30 days: No Contact w/Intl Traveler<30days: No Traveled to known affect area: No History of Present Illness HPI This 57-year-old woman presents to the emergency department complaining of right -sided abdominal pain and tenderness. She states she has had similar pains intermittently in the past. This started about 2-3 days ago, worsening pains, low-grade fevers up to 99, nausea with decreased appetite. No vomiting. She has had workup for this in the past including cystoscopy, colonoscopy, imaging, of note is definitive diagnosis. Does not get the pain very often. This is worse when she has had in the past and she was worried she may have appendicitis. She has had her gallbladder out in the past. No other abdominal surgeries. No other complaints. History Past Medical History Narrative Medical Hypertension GERD Menopausal: Yes : 3 Para: 3 Social History Alcohol Use: No Tobacco Use: No Allergies-Medications (Allergen,Severity, Reaction): Coded Allergies: Sulfa (Sulfonamide Antibiotics) (Unverified Allergy, Unknown, 10/31/17) Reported Meds & Prescriptions Reported Meds & Active Scripts Active Reported Lisinopril 20 Mg Tab 20 Mg PO BID Omeprazole 20 Mg Tab 20 Mg PO DAILY Hydrochlorothiazide 25 Mg Tab 25 Mg PO DAILY Review of Systems Except as stated in HPI: all other systems reviewed are Neg Physical Exam Narrative GENERAL: 57-year-old woman, heavyset, no acute distress. SKIN: Focused skin assessment warm/dry. HEAD: Atraumatic. Normocephalic. EYES: Pupils equal and round. No scleral icterus. No injection or drainage. ENT: No nasal bleeding or discharge. Mucous membranes pink and moist. NECK: Trachea midline. No JVD. CARDIOVASCULAR: Regular rate and rhythm. No murmur appreciated. RESPIRATORY: No accessory muscle use. Clear to auscultation. Breath sounds equal bilaterally. GASTROINTESTINAL: Abdomen is obese, soft, moderate right-sided tenderness throughout the right upper and lower abdomen, some voluntary guarding, no peritonitis or rebound. MUSCULOSKELETAL: No obvious deformities. No edema. NEUROLOGICAL: Awake and alert. No obvious cranial nerve deficits. Motor grossly within normal limits. Normal speech. PSYCHIATRIC: Appropriate mood and affect; insight and judgment normal. Data Data Last Documented VS Vital Signs Date Time Temp Pulse Resp B/P (MAP) Pulse Ox O2 Delivery O2 Flow Rate FiO2 10/31/17 13:35 76 17 165/106 (125) 99 Room Air 10/31/17 10:40 98.0 Orders Orders Complete Blood Count With Diff (10/31/17 13:41) Comprehensive Metabolic Panel (10/31/17 13:41) Lipase (10/31/17 13:41) Urinalysis - C+S If Indicated (10/31/17 13:41) Ct Abd/Pel W Iv Contrast(Rout) (10/31/17 13:41) Iv Access Insert/Monitor (10/31/17 13:41) NPO (10/31/17 13:41) Sodium Chlor 0.9% 1000 Ml Inj (Ns 1000 M (10/31/17 13:41) Sodium Chloride 0.9% Flush (Ns Flush) (10/31/17 13:45) Iohexol 350 Inj (Omnipaque 350 Inj) (10/31/17 14:59) Labs Laboratory Tests Test 10/31/17 13:45 10/31/17 15:00 White Blood Count 9.3 TH/MM3 Red Blood Count 4.88 MIL/MM3 Hemoglobin 12.1 GM/DL Hematocrit 37.2 % Mean Corpuscular Volume 76.2 FL Mean Corpuscular Hemoglobin 24.8 PG Mean Corpuscular Hemoglobin Concent 32.6 % Red Cell Distribution Width 16.2 % Platelet Count 331 TH/MM3 Mean Platelet Volume 7.8 FL Neutrophils (%) (Auto) 68.8 % Lymphocytes (%) (Auto) 22.7 % Monocytes (%) (Auto) 6.0 % Eosinophils (%) (Auto) 1.9 % Basophils (%) (Auto) 0.6 % Neutrophils # (Auto) 6.4 TH/MM3 Lymphocytes # (Auto) 2.1 TH/MM3 Monocytes # (Auto) 0.6 TH/MM3 Eosinophils # (Auto) 0.2 TH/MM3 Basophils # (Auto) 0.1 TH/MM3 CBC Comment DIFF FINAL Differential Comment Blood Urea Nitrogen 12 MG/DL Creatinine 1.10 MG/DL Random Glucose 89 MG/DL Total Protein 7.9 GM/DL Albumin 3.4 GM/DL Calcium Level 8.9 MG/DL Alkaline Phosphatase 80 U/L Aspartate Amino Transf (AST/SGOT) 10 U/L Alanine Aminotransferase (ALT/SGPT) 23 U/L Total Bilirubin 0.4 MG/DL Sodium Level 137 MEQ/L Potassium Level 3.2 MEQ/L Chloride Level 101 MEQ/L Carbon Dioxide Level 29.3 MEQ/L Anion Gap 7 MEQ/L Estimat Glomerular Filtration Rate 62 ML/MIN Lipase 119 U/L MDM Medical Decision Making Medical Screen Exam Complete: Yes Emergency Medical Condition: Yes Interpretation(s) LABS: CBC is unremarkable. CMP is generally unremarkable. Creatinine 1.1 Lipase normal UA is unremarkable CT abdomen and pelvis: [id number] thickening of several loops of small bowel in the right lower quadrant with surrounding inflammatory change and edema. Differential diagnosis includes enteritis and IBD. Appendix is normal. No obstruction abscess or free air. Differential Diagnosis Enteritis, appendicitis, obstruction, renal lithiasis, diverticulitis, other Narrative Course Medical decision making 57-year-old presents emerged from a right abdominal pain, some bowel changes, and a fair amount of right-sided tenderness. CT scan shows enteritis, likely infectious or inflammatory. She has had intermittent symptoms in the past and a question of inflammatory bowel disease is still pertinent. She has had previous GI workup has been negative. I discussed this with her. Will place her on antibiotics and pain medicine. Recommend follow-up with her GI doctor. She agrees to return for any worsening symptoms including worsening abdominal pain, high fevers, bloody diarrhea, or any other new or worsening symptoms. Diagnosis Primary Impression: Enteritis Additional Instructions: Take antibiotics as prescribed. Use Bentyl if needed for abdominal cramping. Follow-up with your GI doctor in the next 1-2 weeks. Return to the emergency department if worsening abdominal pain, fevers, bloody diarrhea, or any other new or worsening symptoms. Med/Other Pt SpecificInfo: Prescription(s) given Scripts Dicyclomine (Bentyl) 10 Mg Cap 10 MG PO TID for Bowel Management, #30 CAP 0 Refills Prov: Angel Miranda MD 10/31/17 Metronidazole (Flagyl) 500 Mg Tab 500 MG PO TID for Infection, #21 TAB 0 Refills Prov: Angel Miranda MD 10/31/17 Disposition: 01 DISCHARGE HOME Condition: Stable Angel Miranda MD Oct 31, 2017 15:38
== END 2017-10-31 16:31 | disposition home or self-care (01) ==
LOC: NEPE 10:40
DX: K52.9 Noninfective gastroenteritis and colitis, unspecified (principal)
CPT/HCPCS: 74177; 80053; 81001; 83690; 85025; 99285; J7030; Q9967